=== PATIENT | male | born 1995 | race Caucasian/White ===

== ENCOUNTER 2017-01-11 13:30 | Emergency (ER) | payer OTHER ==
[~2017-01-11 13:30] MED LIST: AUGMENTIN 875 M1 TAB PO; BACTROBAN OINT22 GM PO; MOTRIN600 MG PO; VYVANSE60 MG PO
[2017-01-11] MEDS ORDERED: Motrin,Rufen800 MG PO (14:59)
== END 2017-01-11 15:18 | disposition home or self-care (01) ==
LOC: ED 13:30
DX: S92.514A Nondisplaced fracture of proximal phalanx of right lesser toe(s), initial encounter for closed fracture (principal); F17.200 Nicotine dependence, unspecified, uncomplicated; W22.8XXA Striking against or struck by other objects, initial encounter; Y93.01 Activity, walking, marching and hiking; Y92.9 Unspecified place or not applicable; Y99.9 Unspecified external cause status

== ENCOUNTER 2017-02-15 11:07 | Emergency (ER) | payer OTHER ==
[~2017-02-15] VITALS: Ht 190.5 cm; Wt 113.4 kg
[~2017-02-15 11:07] MED LIST changes: +Motrin,Rufen800 MG PO
== END 2017-02-15 12:08 | disposition home or self-care (01) ==
LOC: ED 11:07
DX: J02.9 Acute pharyngitis, unspecified (principal); R03.0 Elevated blood-pressure reading, without diagnosis of hypertension; F17.200 Nicotine dependence, unspecified, uncomplicated

== ENCOUNTER 2017-03-29 21:27 | Emergency (ER) | payer OTHER ==
[~2017-03-29] VITALS: Ht 190.5 cm; Wt 124.7 kg
[2017-03-29 22:38] LABS: BASO % 0.3 % (0.0-1.0); EOS # 0.2 10*3/uL (0.0-0.4); HEMOGLOBIN 15.7 g/dl (14.0-18.0); LYMPH # 2.2 10*3/uL (1.3-4.4); LYMPH % 37.5 % (27.0-41.0); MEAN CELL VOLUME 86.4 fl (80.0-94.0); MEAN CORPUSCULAR HGB 30.1 pg (27.0-31.0); MEAN CORPUSCULAR HGB CONC 34.9 g/dl (33.0-37.0); MEAN PLATELET VOLUME 9.8 fl (9.6-12.3); MONO # 0.5 10*3/uL (0.1-1.0); MONO % 8.3 % (3.0-9.0); NEUT # 2.9 10*3/uL (2.3-7.9); NEUT % 49.4 % (47.0-73.0); PLATELET COUNT AUTOMATED 285 10*3/uL (130-400); RED BLOOD COUNT 5.21 10*6/uL (4.50-5.90); RED CELL DISTRI WIDTH 11.8 % (0-14.5); WHITE BLOOD COUNT 5.8 10*3/uL (4.8-10.8)
[2017-03-29 22:53] LABS: ALBUMIN 3.8 gm/dl (3.1-4.5); ALKALINE PHOSPHATASE 103 U/L (45-117); BUN 13 mg/dl (7-24); CHLORIDE 105 mmol/L (98-107); CREATININE 1.13 mg/dL (0.70-1.30); SGOT/AST 21 IU/L (3-35); SGPT/ALT 39 U/L (12-78); SODIUM 140 mmol/L (136-145); TOTAL PROTEIN 7.7 gm/dL (6.4-8.2)
[2017-03-29 23:28] LABS: BILIRUBIN NEGATIVE (NEGATIVE); BLOOD NEGATIVE (NEGATIVE); CLARITY SL CLOUDY (CLEAR); COLOR YELLOW (YELLOW); GLUCOSE NEGATIVE (NEGATIVE); KETONE NEGATIVE (NEGATIVE); LEUKO ESTERASE NEGATIVE (NEGATIVE); NITRITE NEGATIVE (NEGATIVE); SPECIFIC GRAVITY 1.025 (1.005-1.030)
[2017-03-29 23:42] LABS: BACTERIA 2+; CALCIUM OXALATE CRYSTALS 2+
[2017-03-30] MEDS ORDERED: Zofran4 MG PO (00:03)
== END 2017-03-30 00:33 | disposition home or self-care (01) ==
LOC: ED 21:27
PROVIDERS: Nurse Practitioner
DX: B34.9 Viral infection, unspecified (principal); R11.0 Nausea; F17.200 Nicotine dependence, unspecified, uncomplicated

== ENCOUNTER 2017-12-03 04:21 | Emergency (ER) | payer OTHER ==
[~2017-12-03] VITALS: Ht 190.5 cm; Wt 120.2 kg
[~2017-12-03 04:21] MED LIST changes: +Zofran4 MG PO
[2017-12-03] MEDS ORDERED: AMOXICILLIN500 M2 PO (04:38)
[2017-12-03] MEDS ORDERED: Motrin,Rufen800 MG PO (04:38)
== END 2017-12-03 04:51 | disposition home or self-care (01) ==
LOC: ED 04:21
DX: J02.9 Acute pharyngitis, unspecified (principal)

== ENCOUNTER 2017-12-22 17:46 | Emergency (ER) | payer OTHER ==
[~2017-12-22] VITALS: Ht 190.5 cm; Wt 124.7 kg
[~2017-12-22 17:46] MED LIST changes: +AMOXICILLIN500 M2 PO
== END 2017-12-22 18:47 | disposition home or self-care (01) ==
LOC: ED 17:46
DX: M77.9 Enthesopathy, unspecified (principal); M79.672 Pain in left foot; M25.571 Pain in right ankle and joints of right foot; M25.572 Pain in left ankle and joints of left foot

== ENCOUNTER 2018-01-23 21:58 | Emergency (ER) | payer OTHER ==
[~2018-01-23] VITALS: Ht 190.5 cm; Wt 119.3 kg
--- NOTE | ~2018-01-23 | EKG ---
[place], [place] ELECTROCARDIOGRAM REPORT NAME: LOLA STOKES UNIT #: [id number] ROOM: DOCTOR: EPIPHANY DRAFT REPORT BIRTHDATE: [birth year] [facility] Test Date: 2018-01-24 Test Time: 01:42:17 Pat Name: LOLA STOKES Department: ED Room: 7 Gender: M Core Man: TANA : 1995 Requested By: GASTON SMART Order Number: [id number] Reading MD: Gavino Mcgrath MD Measurements Intervals [place] Rate: 65 P: 51 ID: [id number] QRS: 43 QRSD: 104 T: 18 QT: 421 QTc: 438 Interpretive Statements Sinus rhythm Baseline wander in lead(s) V2 Electronically Signed On 01-25-2018 11:10:29 PDT by Gavino Mcgrath MD CM:EKGRPT:ELECTROCARDIOGRAM REPORT [id number] GASTON SMART MD EPIPHJYOTI DRAFT REPORT GASTON SMART MD
--- NOTE | ~2018-01-23 | EKG ---
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
[2018-01-23 22:40] LABS: BASO % 0.5 % (0.0-1.0); EOS # 0.1 10*3/uL (0.0-0.4); EOS % 1.7 % (1.0-4.0); HEMOGLOBIN 14.8 g/dl (14.0-18.0); LYMPH # 2.9 10*3/uL (1.3-4.4); LYMPH % 35.9 % (27.0-41.0); MEAN CELL VOLUME 87.6 fl (80.0-94.0); MEAN CORPUSCULAR HGB 30.1 pg (27.0-31.0); MEAN CORPUSCULAR HGB CONC 34.4 g/dl (33.0-37.0); MEAN PLATELET VOLUME 10.1 fl (9.6-12.3); MONO # 0.7 10*3/uL (0.1-1.0); MONO % 9.2 % (3.0-9.0); NEUT # 4.2 10*3/uL (2.3-7.9); NEUT % 52.1 % (47.0-73.0); PLATELET COUNT AUTOMATED 229 10*3/uL (130-400); RED BLOOD COUNT 4.91 10*6/uL (4.50-5.90); RED CELL DISTRI WIDTH 11.9 % (0-14.5); WHITE BLOOD COUNT 8.1 10*3/uL (4.8-10.8)
[2018-01-23 22:54] LABS: ACT PARTIAL THROMBO TIME 22.7 SECONDS (20.8-31.5)
[2018-01-23 22:59] LABS: ALKALINE PHOSPHATASE 82 U/L (45-117); BUN 16 mg/dl (7-24); CHLORIDE 105 mmol/L (98-107); CREATININE 1.16 mg/dL (0.70-1.30); POTASSIUM 3.7 mmol/L (3.5-5.1); SGOT/AST 34 IU/L (3-35); SGPT/ALT 60 U/L (12-78); SODIUM 141 mmol/L (136-145); TOTAL PROTEIN 7.3 gm/dL (6.4-8.2)
[2018-01-23 23:00] LABS: TROPONIN I < 0.015 ng/ml (<0.045)
[2018-01-24 00:15] LABS: BILIRUBIN NEGATIVE (NEGATIVE); BLOOD NEGATIVE (NEGATIVE); CLARITY CLEAR (CLEAR); COLOR YELLOW (YELLOW); GLUCOSE NEGATIVE (NEGATIVE); KETONE TRACE (NEGATIVE); LEUKO ESTERASE NEGATIVE (NEGATIVE); NITRITE NEGATIVE (NEGATIVE); SPECIFIC GRAVITY 1.025 (1.005-1.030); UROBILINOGEN 0.2 E.U./dl (0.2-1.0)
[2018-01-24 00:23] LABS: RBC 0-2 rbc/hpf (0-2); WBC 0-2 wbc/hpf (0-5)
[2018-01-24 00:27] LABS: URINE AMPHETAMINES < 1000 (1000ng/ml); URINE BARBITURATES < 200 (200ng/ml); URINE BENZODIAZEPINES < 200 (200ng/ml); URINE CANNABINOIDS (THC) < 50 (50ng/ml); URINE COCAINE < 300 (300ng/ml); URINE METHADONE < 300 (300ng/ml); URINE OPIATES < 300 (300ng/ml)
[2018-01-24 00:29] LABS: URINE PHENCYCLIDINE < 25 (25ng/ml)
[2018-01-24] MEDS ORDERED: AMOXICILLIN500 M2 PO (02:09)
== END 2018-01-24 01:55 | disposition home or self-care (01) ==
LOC: ED 21:58
PROVIDERS: Emergency Medicine Emergency Medical Services
DX: E86.0 Dehydration (principal); J40 Bronchitis, not specified as acute or chronic

== ENCOUNTER 2018-07-02 01:00 | Emergency (ER) | payer OTHER ==
[~2018-07-02] VITALS: Ht 190.5 cm; Wt 74.8 kg
[~2018-07-02 01:00] MED LIST changes: +IBU800 MG PO
[2018-07-02] MEDS ORDERED: Motrin,Rufen800 MG PO (01:42)
== END 2018-07-02 02:24 | disposition home or self-care (01) ==
LOC: ED 01:00
DX: S93.401A Sprain of unspecified ligament of right ankle, initial encounter (principal); G89.29 Other chronic pain; M79.661 Pain in right lower leg; F17.200 Nicotine dependence, unspecified, uncomplicated; X50.1XXA Overexertion from prolonged static or awkward postures, initial encounter; Y93.89 Activity, other specified; Y92.89 Other specified places as the place of occurrence of the external cause; Y99.8 Other external cause status

== ENCOUNTER 2018-08-07 15:52 | Emergency (ER) | payer OTHER ==
[~2018-08-07] VITALS: Ht 190.5 cm; Wt 120.2 kg
== END 2018-08-07 16:48 | disposition home or self-care (01) ==
LOC: ED 15:52
DX: S61.412A Laceration without foreign body of left hand, initial encounter (principal); F17.200 Nicotine dependence, unspecified, uncomplicated; Z79.899 Other long term (current) drug therapy; W22.8XXA Striking against or struck by other objects, initial encounter; Y93.89 Activity, other specified; Y92.89 Other specified places as the place of occurrence of the external cause; Y99.8 Other external cause status

== ENCOUNTER 2018-10-27 01:11 | Emergency (ER) | payer OTHER ==
[~2018-10-27] VITALS: Ht 190.5 cm; Wt 99.8 kg
[2018-12-25] MEDS ORDERED: CYCLOBENZAPRINE5 M3 PO (00:20)
[2018-12-25] MEDS ORDERED: MEDROL DOSEPAK4 MG PO (00:20)
== END 2018-10-27 01:30 | disposition home or self-care (01) ==
LOC: ED 01:11
DX: M79.672 Pain in left foot (principal); F17.200 Nicotine dependence, unspecified, uncomplicated; X58.XXXA Exposure to other specified factors, initial encounter; Y93.89 Activity, other specified; Y92.89 Other specified places as the place of occurrence of the external cause; Y99.8 Other external cause status

== ENCOUNTER 2019-01-19 19:31 | Emergency (ER) | payer OTHER ==
[~2019-01-19] VITALS: Ht 190.5 cm; Wt 124.7 kg
[~2019-01-19 19:31] MED LIST changes: +CYCLOBENZAPRINE5 M3 PO; +MEDROL DOSEPAK4 MG PO
== END 2019-01-19 22:00 | disposition home or self-care (01) ==
LOC: ED 19:31
DX: S93.601A Unspecified sprain of right foot, initial encounter (principal); M25.571 Pain in right ankle and joints of right foot; X58.XXXA Exposure to other specified factors, initial encounter; Y93.89 Activity, other specified; Y92.89 Other specified places as the place of occurrence of the external cause; Y99.8 Other external cause status

== ENCOUNTER 2019-02-09 17:57 | Emergency (ER) | payer OTHER ==
[~2019-02-09] VITALS: Ht 190.5 cm; Wt 122.5 kg
[2019-02-09] MEDS ORDERED: CYCLOBENZAPRINE5 M3 PO (22:23)
== END 2019-02-09 22:19 | disposition home or self-care (01) ==
LOC: ED 17:57
DX: S02.2XXA Fracture of nasal bones, initial encounter for closed fracture (principal); S16.1XXA Strain of muscle, fascia and tendon at neck level, initial encounter; S39.012A Strain of muscle, fascia and tendon of lower back, initial encounter; V43.42XA Person boarding or alighting a car injured in collision with other type car, initial encounter; Y93.I9 Activity, other involving external motion; Y92.488 Other paved roadways as the place of occurrence of the external cause; Y99.8 Other external cause status

== ENCOUNTER 2020-03-14 14:21 | Emergency (ER) | payer MEDICAID ==
[~2020-03-14] VITALS: Ht 182.8 cm; Wt 113.4 kg
[2020-03-14 14:55] LABS: BASO % 0.3 % (0.0-1.0); EOS # 0.1 10*3/uL (0.0-0.4); EOS % 0.9 % (1.0-4.0); HEMATOCRIT 46.8 % (42.0-52.0); LYMPH # 1.6 10*3/uL (1.3-4.4); LYMPH % 13.3 % (27.0-41.0); MEAN CELL VOLUME 86.8 fl (80.0-94.0); MEAN CORPUSCULAR HGB 29.9 pg (27.0-31.0); MEAN CORPUSCULAR HGB CONC 34.4 g/dl (33.0-37.0); MEAN PLATELET VOLUME 9.7 fl (9.6-12.3); MONO % 8.2 % (3.0-9.0); NEUT # 8.9 10*3/uL (2.3-7.9); NEUT % 76.7 % (47.0-73.0); PLATELET COUNT AUTOMATED 219 10*3/uL (130-400); RED BLOOD COUNT 5.39 10*6/uL (4.50-5.90); RED CELL DISTRI WIDTH 11.9 % (0-14.5); WHITE BLOOD COUNT 11.7 10*3/uL (4.8-10.8)
[2020-03-14 15:11] LABS: ALBUMIN 4.1 gm/dl (3.1-4.5); ALKALINE PHOSPHATASE 76 U/L (45-117); BUN 11 mg/dl (7-24); CHLORIDE 105 mmol/L (98-107); CREATININE 1.03 mg/dL (0.70-1.30); SGOT/AST 19 IU/L (3-35); SGPT/ALT 55 U/L (12-78); SODIUM 138 mmol/L (136-145); TOTAL PROTEIN 7.5 gm/dL (6.4-8.2)
[2020-03-14] MEDS ORDERED: IMODIUM A-D2 M2 PO (16:17)
[2020-03-14] MEDS ORDERED: KEFLEX500 M1 PO (16:17)
[2020-03-14] MEDS ORDERED: ZOFRAN4 MG PO (16:17)
== END 2020-03-14 16:40 | disposition home or self-care (01) ==
LOC: ED 14:21
PROVIDERS: Emergency Medicine
DX: K52.9 Noninfective gastroenteritis and colitis, unspecified (principal); J40 Bronchitis, not specified as acute or chronic; Z79.899 Other long term (current) drug therapy

== ENCOUNTER 2020-12-08 11:59 | Emergency (ER) | payer MEDICAID ==
[~2020-12-08] VITALS: Ht 190.5 cm; Wt 113.4 kg
[~2020-12-08 11:59] MED LIST changes: +IMODIUM A-D2 M2 PO; +KEFLEX500 M1 PO; +ZOFRAN4 MG PO
[2020-12-08] MEDS ORDERED: FLONASE ALLERG9.9 ML NAS (14:03)
[2020-12-08] MEDS ORDERED: ZITHROMAX250 MG PO (14:03)
== END 2020-12-08 14:09 | disposition home or self-care (01) ==
LOC: ED 11:59
DX: J06.9 Acute upper respiratory infection, unspecified (principal); Z20.822 Contact with and (suspected) exposure to COVID-19; F17.200 Nicotine dependence, unspecified, uncomplicated; Z79.899 Other long term (current) drug therapy; Z79.2 Long term (current) use of antibiotics

== ENCOUNTER 2021-03-05 02:36 | Emergency (ER) | payer MEDICAID ==
[~2021-03-05 02:36] MED LIST changes: +FLONASE ALLERG9.9 ML NAS; +ZITHROMAX250 MG PO
[2021-03-05] MEDS ORDERED: SEPTDS PO (02:49)
== END 2021-03-05 02:52 | disposition home or self-care (01) ==
LOC: ED 02:36
DX: L73.8 Other specified follicular disorders (principal)

== ENCOUNTER 2021-05-03 14:20 | Emergency (ER) | payer OTHER, MEDICAID ==
[~2021-05-03] VITALS: Wt 113.4 kg
[~2021-05-03 14:20] MED LIST changes: +SEPTDS PO
[2021-05-03] MEDS ORDERED: IBUPROFEN600 MG PO ×2 (20:03)
[2021-05-24] MEDS ORDERED: CLARITIN10 MG PO (01:35)
[2021-05-24] MEDS ORDERED: AUGMENTIN 875875 MG PO (01:35)
== END 2021-05-03 19:57 | disposition home or self-care (01) ==
LOC: ED 14:20
DX: S60.222A Contusion of left hand, initial encounter (principal); W01.0XXA Fall on same level from slipping, tripping and stumbling without subsequent striking against object, initial encounter; Y93.89 Activity, other specified; Y92.89 Other specified places as the place of occurrence of the external cause; Y99.8 Other external cause status

== ENCOUNTER 2021-11-18 18:31 | Emergency (ER) | payer OTHER, MEDICAID ==
[~2021-11-18 18:31] MED LIST changes: +AUGMENTIN 875875 MG PO; +CLARITIN10 MG PO; +IBUPROFEN600 MG PO
== END 2021-11-18 22:28 | disposition home or self-care (01) ==
LOC: ED 18:31
DX: S39.012A Strain of muscle, fascia and tendon of lower back, initial encounter (principal); X50.9XXA Other and unspecified overexertion or strenuous movements or postures, initial encounter; Y93.89 Activity, other specified; Y92.89 Other specified places as the place of occurrence of the external cause; Y99.8 Other external cause status

== ENCOUNTER 2022-03-11 17:32 | Emergency (ER) | payer MEDICAID ==
[~2022-03-11] VITALS: Ht 187.9 cm; Wt 113.4 kg
[2022-03-11] MEDS ORDERED: CETIRIZINE10 MG PO (18:47)
[2022-03-11] MEDS ORDERED: CEFDINIR300 MG PO (18:47)
== END 2022-03-11 18:54 | disposition home or self-care (01) ==
LOC: ED 17:32
DX: H66.91 Otitis media, unspecified, right ear (principal); R09.89 Other specified symptoms and signs involving the circulatory and respiratory systems

== ENCOUNTER 2023-10-18 13:10 | Emergency (ER) | payer BC ==
[~2023-10-18] VITALS: Ht 190.5 cm; Wt 124.7 kg
[~2023-10-18 13:10] MED LIST changes: +CEFDINIR300 MG PO; +CETIRIZINE10 MG PO
[2023-10-18] MEDS ORDERED: CIPROFLOXACIN H10 ML OPH (13:28)
[2023-10-18] MEDS ORDERED: AMOX-CLAV 875-1 EACH PO (13:28)
== END 2023-10-18 13:33 | disposition home or self-care (01) ==
LOC: ED 13:10
DX: H10.9 Unspecified conjunctivitis (principal); H01.00A Unspecified blepharitis right eye, upper and lower eyelids; F90.9 Attention-deficit hyperactivity disorder, unspecified type

== ENCOUNTER 2024-02-20 22:42 | Emergency (ER) | payer BC ==
[~2024-02-20] VITALS: Ht 193 cm; Wt 122.5 kg
[~2024-02-20 22:42] MED LIST changes: +AMOX-CLAV 875-1 EACH PO; +CIPROFLOXACIN H10 ML OPH
[2024-02-20] MEDS ORDERED: Acetaminophen/Oxycodone 5 MG/325 MG TABLET PO ONE (23:10)
[2024-02-21] MEDS ORDERED: MELOXICAM15 MG PO (00:05)
== END 2024-02-21 00:34 | disposition home or self-care (01) ==
LOC: ED 22:42
DX: S63.501A Unspecified sprain of right wrist, initial encounter (principal); W22.01XA Walked into wall, initial encounter; Y93.89 Activity, other specified; Y92.89 Other specified places as the place of occurrence of the external cause; Y99.8 Other external cause status

== ENCOUNTER 2024-12-05 23:26 | Emergency (ER) | payer BC ==
[~2024-12-05] VITALS: Ht 190.5 cm; Wt 127.0 kg
[~2024-12-05 23:26] MED LIST changes: +MELOXICAM15 MG PO
[2024-12-05] MEDS ORDERED: Dexamethasone Sodium Phospha 20 MG/5 ML VIAL IV ONE (23:45)
[2024-12-05] MEDS ORDERED: METHOCARBAMOL 750 MG TAB PO ONE (23:45)
[2024-12-05] MEDS ORDERED: Ketorolac Tromethamine 30 MG/ML VIAL IV ONE (23:45)
[2024-12-05 23:54] LABS: BASO # 0.1 10*3/uL (0.0-0.1); BASO % 0.5 % (0.0-1.0); EOS # 0.1 10*3/uL (0.0-0.4); EOS % 1.3 % (1.0-4.0); HEMATOCRIT 46.3 % (42.0-52.0); MEAN CELL VOLUME 85.9 fl (80.0-94.0); MEAN CORPUSCULAR HGB 29.5 pg (27.0-31.0); MEAN CORPUSCULAR HGB CONC 34.3 g/dl (33.0-37.0); MEAN PLATELET VOLUME 9.4 fl (9.6-12.3); MONO # 0.7 10*3/uL (0.1-1.0); MONO % 7.1 % (3.0-9.0); NEUT # 6.3 10*3/uL (2.3-7.9); NEUT % 62.7 % (47.0-73.0); PLATELET COUNT AUTOMATED 258 10*3/uL (130-400); RED BLOOD COUNT 5.39 10*6/uL (4.50-5.90); RED CELL DISTRI WIDTH 11.7 % (0-14.5); WHITE BLOOD COUNT 10.1 10*3/uL (4.8-10.8)
[2024-12-06 00:45] LABS: ALKALINE PHOSPHATASE 69 U/L (46-116); BUN 14 mg/dl (9-23); CHLORIDE 100 mmol/L (98-107); POTASSIUM 3.8 mmol/L (3.4-5.1); SGPT/ALT 37 U/L (5-49); TOTAL PROTEIN 7.5 gm/dL (6.0-8.0)
[2024-12-06] MEDS ORDERED: METHOCARBAMOL750 M1 PO (00:57)
[2024-12-06] MEDS ORDERED: NAPROSYN500 MG PO (00:57)
[2024-12-06] MEDS ORDERED: PREDNISONE20 M1 PO (00:57)
== END 2024-12-06 01:11 | disposition home or self-care (01) ==
LOC: ED 23:26
PROVIDERS: Emergency Medicine
DX: M76.62 Achilles tendinitis, left leg (principal); M76.61 Achilles tendinitis, right leg; I87.2 Venous insufficiency (chronic) (peripheral); M13.88 Other specified arthritis, other site; R60.0 Localized edema

== ENCOUNTER → 2024-12-21 | Outpatient (CLI) | payer BC ==
[~2024-12-21] MED LIST changes: +METHOCARBAMOL750 M1 PO; +NAPROSYN500 MG PO; +PREDNISONE20 M1 PO
== END | disposition home or self-care (01) ==
LOC: RAD 10:28
PROVIDERS: ATTEND Family Medicine
DX: M25.571 Pain in right ankle and joints of right foot (principal)

== ENCOUNTER 2025-02-19 08:31 | Emergency (ER) | payer BC ==
[~2025-02-19] VITALS: Ht 190.5 cm; Wt 127.0 kg
[2025-02-19] MEDS ORDERED: Dexamethasone Sodium Phospha 20 MG/5 ML VIAL IM ONE (09:00)
== END 2025-02-19 09:18 | disposition home or self-care (01) ==
LOC: ED 08:31
DX: G62.9 Polyneuropathy, unspecified (principal); F90.9 Attention-deficit hyperactivity disorder, unspecified type

== ENCOUNTER 2025-06-01 15:40 | Emergency (ER) | payer BC ==
[~2025-06-01] VITALS: Wt 127.0 kg
[2025-06-01 17:40] LABS: BASO # 0.0 10*3/uL (0.0-0.1); BASO % 0.4 % (0.0-1.0); EOS # 0.2 10*3/uL (0.0-0.4); EOS % 1.9 % (1.0-4.0); MEAN CELL VOLUME 87.4 fl (80.0-94.0); MEAN CORPUSCULAR HGB 29.9 pg (27.0-31.0); MEAN PLATELET VOLUME 9.2 fl (9.6-12.3); MONO # 0.9 10*3/uL (0.1-1.0); MONO % 10.6 % (3.0-9.0); NEUT # 4.6 10*3/uL (2.3-7.9); NEUT % 55.4 % (47.0-73.0); NUCLEATED RED BLOOD CELL 0.0 % (0.0-0.0); NUCLEATED RED BLOOD CELL 0.0 10*3/uL (0.0-0.0); PLATELET COUNT AUTOMATED 239 10*3/uL (130-400); RED CELL DISTRI WIDTH 11.9 % (0-14.5)
[2025-06-01 18:09] LABS: BUN 13 mg/dl (9-23); SGPT/ALT 59 U/L (5-49)
[2025-06-01] MEDS ORDERED: ZITHROMAX250 MG PO (18:42)
[2025-06-01] MEDS ORDERED: AZITHROMYCIN 250 MG TAB PO ONE (18:45)
== END 2025-06-01 18:56 | disposition home or self-care (01) ==
LOC: ED 15:40
PROVIDERS: Nurse Practitioner Family
DX: R04.2 Hemoptysis (principal); J20.9 Acute bronchitis, unspecified; F90.9 Attention-deficit hyperactivity disorder, unspecified type